=== PATIENT | female | born 1990 | race Caucasian/White ===

== ENCOUNTER 2016-09-05 10:50 | Emergency (ER) | payer BC ==
[2016-09-05 11:11] VITALS: BP 106/58
--- NOTE | 2016-09-05 11:30 | UC ---
Throat Pain/Nasal Leonel HPI - HPI Summary HPI Summary: 3 days of fever chills and sore throat - History of Current Complaint Chief Complaint: UCRespiratory Stated Complaint: FEVER, BODY ACHES, CHILLS Time Seen by Provider: 09/05/16 11:22 Hx Obtained From: Patient Hx Last Menstrual Period: 3 WEEKS; ON ORAL CONTRACEPTIVES ?: Yes Onset/Duration: Sudden Onset, Lasting Days, Still Present - "I feel better todat than the last 3 days" Severity: Mild Cough: None Associated Signs & Symptoms: Positive: Sinus Discomfort, Nasal Discharge, Fever - Allergies/Home Medications Allergies/Adverse Reactions: Allergies Allergy/AdvReac Type Severity Reaction Status Date / Time No Known Allergies Allergy Verified 09/05/16 10:59 Home Medications: Home Medications Acetaminophen [Acetaminophen Extra Stren] 2 tab PO TID PRN 09/05/16 [History Confirmed 09/05/16] Desogestrel & Ethinyl Estradio [Enskyce 0.15-30 mg-Mcg] 1 tab PO QPM 09/05/16 [ History Confirmed 09/05/16] PMH/Surg Hx/FS Hx/Imm Hx Previously Healthy: Yes Endocrine History Of: Denies: Diabetes, Thyroid Disease Cardiovascular History Of: Denies: Cardiac Disorders, Hypertension Respiratory History Of: Denies: COPD, Asthma GI/ History Of: Denies: Ulcer - Surgical History Surgical History: Yes Surgery Procedure, Year, and Place: 2016 - ovarian cysts bilat - Family History Known Family History: Positive: None Family History: no reported cardiovascular issues in family lineage - Social History Occupation: Employed Full-time - other at work are sick---no reports of flu Lives: With Family Alcohol Use: Weekly Substance Use Type: None Smoking Status (MU): Never Smoked Tobacco - Immunization History Most Recent Influenza Vaccination: NOT THIS YEAR Review of Systems Constitutional: Fever, Chills, Fatigue Skin: Negative Eyes: Negative ENT: Sore Throat Respiratory: Negative Cardiovascular: Negative Gastrointestinal: Negative Genitourinary: Negative Motor: Negative Neurovascular: Negative Musculoskeletal: Arthralgia, Myalgia Neurological: Negative Psychological: Negative All Other Systems Reviewed And Are Negative: Yes Physical Exam Triage Information Reviewed: Yes Appearance: No Pain Distress, Well-Nourished, Ill-Appearing - mild Vital Signs: Initial Vital Signs Temp 98.9 F 09/05/16 11:02 Pulse 94 09/05/16 11:02 Resp 16 09/05/16 11:02 BP 106/58 09/05/16 11:02 Pulse Ox 99 09/05/16 11:02 Vital Signs Reviewed: Yes Eye Exam: Normal Eyes: Positive: Conjunctiva Clear ENT Exam: Normal ENT: Positive: Normal ENT inspection, Hearing grossly normal, Pharyngeal erythema, TMs normal. Negative: Nasal congestion, Nasal drainage, Tonsillar swelling, Tonsillar exudate, Trismus, Muffled/hoarse voice Dental Exam: Normal Neck exam: Normal Neck: Positive: Supple, Nontender, Enlarged Nodes @ - anterior cervical Respiratory Exam: Normal Respiratory: Positive: Chest non-tender, Lungs clear, Normal breath sounds, No respiratory distress, No accessory muscle use Cardiovascular Exam: Normal Cardiovascular: Positive: RRR, No Murmur, Pulses Normal, Brisk Capillary Refill Musculoskeletal Exam: Normal Musculoskeletal: Positive: Strength Intact, ROM Intact, No Edema Neurological Exam: Normal Neurological: Positive: Alert, Muscle Tone Normal Psychological Exam: Normal Skin Exam: Normal Diagnostics - Laboratory Diagnostic Studies Completed/Ordered: Rapid strep & Influenza A/B (-) Throat Pain/Nasal Course/Dx - Course Assessment/Plan: tylenol, ibuprofen, rest increase fluids, follow with pcp prn - Differential Dx/Diagnosis Differential Diagnosis/HQI/PQRI: Laryngitis, Otitis Media, Pharyngitis, Sinusitis, URI Provider Diagnoses: Viral Syndrome Discharge - Discharge Plan Condition: Stable Disposition: HOME Patient Education Materials: Viral Syndrome (ED) Referrals: [facility]YS[facility]IAN REFERRAL [Outside] - 3 Days No Primary Care Phys,NOPCP [Primary Care Provider] -
== END 2016-09-05 12:03 | disposition home or self-care (01) ==
LOC: UCEAST 10:50
DX: B34.9 Viral infection, unspecified (principal)
CPT/HCPCS: 87502; 87651; 99211; G0463